=== PATIENT | female | born 1960 | race Caucasian/White ===

== ENCOUNTER 2021-06-19 13:53 | Emergency (ER) | payer MEDICAID ==
[~2021-06-19] VITALS: Ht 175.3 cm; Wt 90.7 kg
[~2021-06-19 13:53] MED LIST: NOHOMEMEDICATIONS; NORCO 5-325 TA1 EACH PO
[2021-06-19] MEDS ORDERED: KEPPRA XR500 MG PO (14:05)
[2021-06-19] MEDS ORDERED: LOPRESSOR50 MG PO (14:05)
[2021-06-19] MEDS ORDERED: SYMBICORT80 MCG/4.1 INH (14:05)
[2021-06-19] MEDS ORDERED: TIZANIDINE HCL4 M1 PO (14:05)
[2021-06-19] MEDS ORDERED: COZAAR 25 MG TA25 M1 PO (14:05)
[2021-06-19] MEDS ORDERED: LIPITOR40 MG PO (14:05)
[2021-06-19] MEDS ORDERED: NORVASC5 MG PO (14:05)
[2021-06-19] MEDS ORDERED: SERTRALINE HCL100 MG PO (14:06)
[2021-06-19] MEDS ORDERED: DULCOLAX STOOL100 M1 PO (14:06)
[2021-06-19] MEDS ORDERED: FAMOTIDINE 20 M20 MG PO (14:06)
[2021-06-19] MEDS ORDERED: ISOSORBIDE MON120 MG PO (14:06)
[2021-06-19] MEDS ORDERED: NITROSTAT0.4 M1 SUBLING (14:06)
[2021-06-19] MEDS ORDERED: ASA81BEC PO (14:06)
[2021-06-19] MEDS ORDERED: PROAIR HFA8.5 GM INH (14:07)
[2021-06-19] MEDS ORDERED: HYDROCODON-ACE1 EAC7 PO (16:38)
[2021-06-19 16:46] VITALS: BP 122/68
== END 2021-06-19 16:47 | disposition home or self-care (01) ==
LOC: M.ERS 13:53
DX: S93.601A Unspecified sprain of right foot, initial encounter (principal); Z90.710 Acquired absence of both cervix and uterus; Z79.899 Other long term (current) drug therapy; Z88.0 Allergy status to penicillin; X58.XXXA Exposure to other specified factors, initial encounter; Y93.89 Activity, other specified; Y92.89 Other specified places as the place of occurrence of the external cause; Y99.8 Other external cause status